=== PATIENT | male | born 1990 | race Caucasian/White ===

== ENCOUNTER 2017-10-30 06:30 | Observation (INO) | payer MEDICAID, OTHER ==
[~2017-10-30] VITALS: Ht 167.6 cm; Wt 60.0 kg
[2017-10-30] MEDS ORDERED: ZIPRASIDONE 40MG CAPSULE PO STA (06:34)
[2017-10-30 07:11] LABS: BASOPHILS # (AUTO) 0.03 x10^3/uL (0-0.1); BASOPHILS % (AUTO) 0 % (0-1); EOSINOPHILS # (AUTO) 0.24 x10^3/uL (0-0.4); EOSINOPHILS % (AUTO) 3 % (1-7); LYMPHOCYTES # (AUTO) 2.21 x10^3/uL (1-3.4); LYMPHOCYTES % (AUTO) 24 % (22-44); MD NO; MEAN CORPUSCULAR HEMOGLOBIN 28.1 pg (27.5-34.5); MEAN CORPUSCULAR HGB CONC 33.3 g/dL (33.2-36.2); MEAN CORPUSCULAR VOLUME 84.4 fL (81-97); MEAN PLATELET VOLUME 7.9 fL (7.4-10.4); MONOCYTES # (AUTO) 0.62 x10^3/uL (0.2-0.8); MONOCYTES % (AUTO) 7 % (2-9); NEUTROPHILS % (AUTO) 67 % (42-75); PLATELET COUNT 360 x10^3/uL (130-400); RED BLOOD COUNT 5.41 x10^6/uL (4.38-5.82); RED CELL DISTRIBUTION WIDTH 14.4 % (9.4-14.8)
[2017-10-30 07:26] LABS: ALBUMIN 3.8 g/dL (3.4-5.0); ANION GAP 8 mmol/L (5-15); CALCIUM 8.7 mg/dL (8.5-10.1); CHLORIDE 106 mmol/L (98-107)
[2017-10-30 07:29] LABS: ALANINE AMINOTRANSFERASE 47 U/L (12-78); ALKALINE PHOSPHATASE 105 U/L (45-117); BILIRUBIN,TOTAL 0.6 mg/dL (0.2-1.0); CREATININE 0.88 mg/dL (0.7-1.3); TOTAL PROTEIN 7.8 g/dL (6.4-8.2)
[2017-10-30 07:30] LABS: ACETAMINOPHEN < 2 mcg/mL (10-30); SALICYLATE LEVEL < 1.7 mg/dL (2.8-20.0)
[2017-10-30 07:37] LABS: AMPHETAMINE SCREEN, URINE Negative (Negative); BARBITURATE SCREEN, URINE Negative (Negative); BENZODIAZEPINE SCREEN, URINE Negative (Negative); CANNABINOID SCREEN, URINE Negative (Negative); COCAINE SCREEN, URINE Negative (Negative); METHADONE SCREEN, URINE Negative (Negative); OPIATE SCREEN, URINE Negative (Negative)
[2017-10-30] MEDS ORDERED: ACETAMINOPHEN 325 MG TABLET PO PRN (12:00)
[2017-10-30] MEDS ORDERED: ONDANSETRON ODT 4 MG PO PRN (12:00)
[2017-10-30] MEDS ORDERED: DOCUSATE 100 MG CAPSULE PO PRN (12:00)
[2017-10-30 12:31] LABS: FREE T4 (FREE THYROXINE) 1.11 ng/dL (0.76-1.46); THYROID STIMULATING HORMONE 2.62 mIU/L (0.358-3.740)
[2017-10-30 14:35] LABS: CULTURE INDICATED? NO; MICROSCOPIC NOT IND
[2017-10-30] MEDS ORDERED: QUETIAPINE 25MG TABLET ONE (21:59)
[2017-10-30] MEDS: QUETIAPINE 25MG TABLET PO SCH (22:02)
[2017-10-31] MEDS ORDERED: LORazepam 1MG TABLET PO ONE (02:00)
[2017-10-31] MEDS ORDERED: LORazepam 1MG TABLET ONE (17:21)
[2017-10-31] MEDS ORDERED: QUETIAPINE 100MG TABLET ONE (20:24)
[2017-10-31] MEDS ORDERED: QUETIAPINE 25MG TABLET ONE (20:36)
[2017-10-31] MEDS: QUETIAPINE 25MG TABLET PO SCH (20:48)
[2017-11-01] MEDS ORDERED: LORazepam 1MG TABLET ONE (00:48)
[2017-11-01] MEDS ORDERED: LORazepam 1MG TABLET PO ONE (01:00)
[2017-11-01] MEDS ORDERED: ZIPRASIDONE 20MG CAPSULE ONE (01:57)
[2017-11-01] MEDS ORDERED: ZIPRASIDONE 20MG CAPSULE PO ONE (02:00)
[2017-11-01] MEDS: QUETIAPINE 25MG TABLET PO SCH (21:00)
[2017-11-01] MEDS ORDERED: QUETIAPINE 25MG TABLET ONE (21:10)
[2017-11-02] MEDS ORDERED: LORazepam 1MG TABLET ONE ×3 (05:42→23:05)
[2017-11-02] MEDS: LORazepam 1MG TABLET PO PRN ×3 (05:44→23:10)
[2017-11-02] MEDS ORDERED: QUETIAPINE 25MG TABLET ONE (21:00)
[2017-11-02] MEDS: QUETIAPINE 25MG TABLET PO SCH (21:03)
[2017-11-03] MEDS ORDERED: LORazepam 1MG TABLET ONE (03:35)
[2017-11-03] MEDS: LORazepam 1MG TABLET PO PRN (03:35)
[2017-11-03] MEDS ORDERED: QUETIAPINE 25MG TABLET ONE (20:23)
[2017-11-03] MEDS: QUETIAPINE 25MG TABLET PO SCH (20:28)
[2017-11-04] MEDS ORDERED: LORazepam 1MG TABLET ONE (07:41)
[2017-11-04] MEDS: LORazepam 1MG TABLET PO PRN ×2 (07:42→21:27)
[2017-11-04 19:48] VITALS: BP 113/71
[2017-11-04] MEDS: QUETIAPINE 25MG TABLET PO SCH (21:27)
[2017-11-05 07:54] VITALS: BP 109/80
[2017-11-05 19:17] VITALS: BP 93/53
[2017-11-05 20:00] VITALS: BP 115/69
[2017-11-05] MEDS: QUETIAPINE 25MG TABLET PO SCH (21:10)
[2017-11-05] MEDS: LORazepam 1MG TABLET PO PRN (21:19)
[2017-11-06 04:40] VITALS: BP 115/87
[2017-11-06] MEDS: LORazepam 1MG TABLET PO PRN (04:44)
[2017-11-06 07:30] VITALS: BP 97/59
[2017-11-06 20:00] VITALS: BP 97/41
[2017-11-06 21:32] VITALS: BP 103/54
[2017-11-06] MEDS: QUETIAPINE 100MG TABLET PO SCH (21:37)
[2017-11-07 07:30] VITALS: BP 105/75
[2017-11-07 20:17] VITALS: BP 123/72
[2017-11-07] MEDS: QUETIAPINE 100MG TABLET PO SCH (21:36)
[2017-11-08 07:37] VITALS: BP 111/71
[2017-11-08 19:49] VITALS: BP 102/74
[2017-11-08] MEDS: QUETIAPINE 100MG TABLET PO SCH (20:51)
[2017-11-08] MEDS: LORazepam 1MG TABLET PO PRN (20:53)
[2017-11-08] MEDS ORDERED: DIPHENHYDRAMINE 50 MG CAPSULE PO ONE (23:30)
[2017-11-09] MEDS ORDERED: ZIPRASIDONE 20 MG INJ IM PRN (19:30)
[2017-11-09 19:51] VITALS: BP 120/73
[2017-11-09] MEDS: LORazepam 1MG TABLET PO PRN (20:15)
[2017-11-09] MEDS: QUETIAPINE 100MG TABLET PO SCH (20:15)
[2017-11-10 03:37] VITALS: BP 126/79
[2017-11-10 08:57] VITALS: BP 110/64
[2017-11-10] MEDS: LORazepam 1MG TABLET PO PRN (09:46)
[2017-11-10] MEDS ORDERED: DIPHENHYDRAMINE 25 MG CAPSULE PO ONE (13:30)
[2017-11-10] MEDS ORDERED: OLANZAPINE 10 MG INJ IM PRN (14:00)
[2017-11-10] MEDS ORDERED: BENZTROPINE 1 MG/ML, 2 ML IM PRN (14:00)
[2017-11-10] MEDS: BENZTROPINE 1 MG TABLET PO PRN (17:17)
[2017-11-10 19:42] VITALS: BP 118/66
[2017-11-10] MEDS ORDERED: QUETIAPINE 100MG TABLET PO SCH (21:00)
[2017-11-10] MEDS ORDERED: DIPHENHYDRAMINE 50 MG CAPSULE PO PRN (22:00)
[2017-11-11 07:40] VITALS: BP 128/84
[2017-11-11] MEDS: QUETIAPINE 25MG TABLET PO PRN (08:52)
[2017-11-11] MEDS: BENZTROPINE 1 MG TABLET PO PRN (08:53)
[2017-11-11] MEDS: LORazepam 1MG TABLET PO PRN (08:53)
[2017-11-11] MEDS ORDERED: QUETIAPINE 100MG TABLET PO SCH (21:00)
[2017-11-12] MEDS: ORAJEL 7GM TUBE MM PRN ×3 (02:40→15:27)
[2017-11-12 07:20] VITALS: BP 113/79
[2017-11-12] MEDS: QUETIAPINE 25MG TABLET PO PRN (08:16)
[2017-11-12] MEDS: BENZTROPINE 1 MG TABLET PO PRN (08:17)
[2017-11-12] MEDS: LORazepam 1MG TABLET PO PRN (08:17)
[2017-11-12] MEDS ORDERED: OLAN10VI2 IM (12:47)
[2017-11-12] MEDS ORDERED: BENZ1TAB61 PO (12:47)
[2017-11-12] MEDS ORDERED: QUET100T PO (12:47)
[2017-11-12] MEDS ORDERED: CLON-365 PO (12:47)
[2017-11-12] MEDS ORDERED: QUET25TA PO (12:47)
== END 2017-11-12 17:13 ==
LOC: ED 08:03 → EDIP 10:38 → 2N 11-04 14:54
PROVIDERS: ADMIT Hospitalist; ATTEND Hospitalist
DX: R45.851 Suicidal ideations (principal); F20.0 Paranoid schizophrenia; F31.9 Bipolar disorder, unspecified; F41.1 Generalized anxiety disorder; G47.00 Insomnia, unspecified; Z91.14 Patient's other noncompliance with medication regimen
CPT/HCPCS: 36415; 80053; 80307; 80329; 81003; 84439; 84443; 85025; 96372; 99285; G0378; J3486; Q0163; G0480

== ENCOUNTER 2019-02-25 22:03 | Emergency (ER) | payer MEDICAID, OTHER ==
[~2019-02-25] VITALS: Ht 172.7 cm; Wt 62.0 kg
[~2019-02-25 22:03] MED LIST: BENZ1TAB61 PO; CLON1TAB11 PO; OLAN10VI2 IM; QUET100T PO; QUET25TA7 PO
[2019-02-25 22:11] VITALS: BP 103/71
--- NOTE | 2019-02-25 22:18 | NUR ---
Pt ambulated to room with biomedical engineering technician.
--- NOTE | 2019-02-25 22:38 | NUR ---
Urine sample collected and sent to lab with general labor, bloodwork collected.
[2019-02-25 22:45] LABS: BASOPHILS # (AUTO) 0.04 x10^3/uL (0-0.1); BASOPHILS % (AUTO) 1 % (0-1); EOSINOPHILS # (AUTO) 0.23 x10^3/uL (0-0.4); EOSINOPHILS % (AUTO) 3 % (1-7); LYMPHOCYTES % (AUTO) 22 % (22-44); MD NO; MEAN CORPUSCULAR HEMOGLOBIN 28.9 pg (27.5-34.5); MEAN CORPUSCULAR HGB CONC 32.4 g/dL (33.2-36.2); MEAN CORPUSCULAR VOLUME 89.2 fL (81-97); MEAN PLATELET VOLUME 7.9 fL (7.4-10.4); MONOCYTES # (AUTO) 0.69 x10^3/uL (0.2-0.8); MONOCYTES % (AUTO) 9 % (2-9); NEUTROPHILS # (AUTO) 5.07 x10^3/uL (1.8-6.8); NEUTROPHILS % (AUTO) 66 % (42-75); PLATELET COUNT 316 x10^3/uL (130-400); RED BLOOD COUNT 5.25 x10^6/uL (4.38-5.82); RED CELL DISTRIBUTION WIDTH 13.6 % (9.4-14.8)
--- NOTE | 2019-02-25 22:45 | NUR ---
Pt pacing around the room, talking to himself. Upon RN entering the room, pt answers most questions but refuses to answer some. Pt states that he came to ED for "depression and anxiety" pt states that he has visual and auditory hallucinations and c/o "it seems like I'm retarded." Pt states that he is suicidal with a plan to shoot himself, pt denies access to a gun. Pt states that he has had a previous "suicide attempt" in which he "was going to stab [myself] but someone stopped [me]." Pt denies any injury at that time. Pt states that he is prescribed seroquel but pt refusing to answer if he is currently taking that prescribed medication.
[2019-02-25 22:57] LABS: ALBUMIN 4.1 g/dL (3.4-5.0); ANION GAP 6 mmol/L (5-15); CHLORIDE 105 mmol/L (98-107)
--- NOTE | 2019-02-25 22:57 | NUR ---
Pt requesting food, stating "I haven't felt good so I haven't eaten in a few days and I need food." Pt advised that he has to wait until he has been evaluated by the ERP and the ERP has to give permission. Pt states "Fuck you then, I want a different nurse that can understand me. I need food." Pt states "I have a place to stay, I have an income, I have more money than you, than fucking all of you at this hospital and I want a different nurse who will give me food."
[2019-02-25 22:58] LABS: SALICYLATE LEVEL < 1.7 mg/dL (2.8-20.0)
[2019-02-25 22:59] LABS: AMPHETAMINE SCREEN, URINE Negative (Negative); BARBITURATE SCREEN, URINE Negative (Negative); BENZODIAZEPINE SCREEN, URINE Negative (Negative); CANNABINOID SCREEN, URINE Negative (Negative); COCAINE SCREEN, URINE Negative (Negative); METHADONE SCREEN, URINE Negative (Negative); OPIATE SCREEN, URINE Negative (Negative)
--- NOTE | 2019-02-25 23:10 | NUR ---
Dr. Mena at bedside, pt denies suicial ideations. Pt to be discharged.
--- NOTE | 2019-02-25 23:13 | NUR ---
Patient discharged home.
== END 2019-02-26 00:36 | disposition home or self-care (01) ==
LOC: ED 02-26 00:30
DX: F33.9 Major depressive disorder, recurrent, unspecified (principal); Z72.9 Problem related to lifestyle, unspecified
CPT/HCPCS: 36415; 80048; 80307; 82040; 85025; 99284

== ENCOUNTER 2019-04-15 03:26 | Emergency (ER) | payer MEDICAID ==
[~2019-04-15] VITALS: Ht 172.7 cm; Wt 66.0 kg
[2019-04-15 05:16] VITALS: BP 140/82
== END 2019-04-15 05:18 | disposition home or self-care (01) ==
LOC: ED 03:41
DX: F15.129 Other stimulant abuse with intoxication, unspecified (principal); Z72.9 Problem related to lifestyle, unspecified; F31.9 Bipolar disorder, unspecified; F41.1 Generalized anxiety disorder
CPT/HCPCS: 99283

== ENCOUNTER 2019-04-17 01:54 | Emergency (ER) | payer MEDICAID ==
[~2019-04-17] VITALS: Ht 172.7 cm; Wt 65.0 kg
[2019-04-17 02:05] VITALS: BP 130/81
== END 2019-04-17 03:13 | disposition home or self-care (01) ==
LOC: ED 02:22
DX: R11.2 Nausea with vomiting, unspecified (principal); Z72.9 Problem related to lifestyle, unspecified; F31.9 Bipolar disorder, unspecified; F41.1 Generalized anxiety disorder
CPT/HCPCS: 99283; Q0162

== ENCOUNTER 2019-09-15 21:46 | Emergency (ER) | payer MEDICAID ==
[~2019-09-15] VITALS: Ht 172.7 cm; Wt 70.6 kg
[~2019-09-15 21:46] MED LIST changes: +ARIP10TA33 PO; +HYDR50CA2 PO; +SERT50TA28 PO
[2019-09-15 21:51] VITALS: BP 139/89
--- NOTE | 2019-09-15 22:15 | NUR ---
pt refused, pt afraid of xray
[2019-09-15 22:21] LABS: BASOPHILS # (AUTO) 0.02 x10^3/uL (0-0.1); BASOPHILS % (AUTO) 0 % (0-1); EOSINOPHILS # (AUTO) 0.01 x10^3/uL (0-0.4); EOSINOPHILS % (AUTO) 0 % (1-7); LYMPHOCYTES # (AUTO) 1.37 x10^3/uL (1-3.4); LYMPHOCYTES % (AUTO) 15 % (22-44); MD NO; MEAN CORPUSCULAR HEMOGLOBIN 29.9 pg (27.5-34.5); MEAN CORPUSCULAR HGB CONC 33.1 g/dL (33.2-36.2); MEAN CORPUSCULAR VOLUME 90.4 fL (81-97); MONOCYTES # (AUTO) 0.13 x10^3/uL (0.2-0.8); MONOCYTES % (AUTO) 1 % (2-9); NEUTROPHILS # (AUTO) 7.85 x10^3/uL (1.8-6.8); NEUTROPHILS % (AUTO) 84 % (42-75); PLATELET COUNT 370 x10^3/uL (130-400); RED BLOOD COUNT 5.14 x10^6/uL (4.38-5.82); RED CELL DISTRIBUTION WIDTH 13.4 % (9.4-14.8)
[2019-09-15 22:29] LABS: ALANINE AMINOTRANSFERASE 40 U/L (12-78); ALBUMIN 4.4 g/dL (3.4-5.0); ANION GAP 6 mmol/L (5-15); CALCIUM 9.4 mg/dL (8.5-10.1); CHLORIDE 105 mmol/L (98-107); CREATININE 1.01 mg/dL (0.7-1.3)
[2019-09-15] MEDS ORDERED: ONDANSETRON ODT 4 MG PO ONE (22:30)
--- NOTE | 2019-09-15 22:30 | NUR ---
THIS IS A 29 YO MALE COMING IN FOR "I'M NAUSEOUS, I HAVE SOME HEART STRAINS, AND VERONIQUE SHORT OF BREATH, AND IT FEELS LIKE MY BRAIN IS SWOLLEN FOR THE LAST FEW HOURS", DENIES COUGH. PATIENT STATES THE "STRAINS IN MY CHEST" ARE INTERMITTENT, STATES "I HAD A HEART ATTACK AT 27 OR 28". PATIENT IS POOR HISTORIAN. PATIENT STATES HE OCCASIONALLY USES METH, DENIES ETOH, SMOKE 3-4 CIGARETTES PER DAY. PATIENT PLACED ON PERSONAL INJURY ATTORNEY, SINUS TACHYCARDIA PRESENT AT 109. CONTINUOUS SPO2 AT 96%, CYCLE BP Q1HR. CALL LIGHT IN REACH, DENIES NEEDS AT THIS TIME.
[2019-09-15 22:33] LABS: ALKALINE PHOSPHATASE 77 U/L (45-117); BILIRUBIN,TOTAL 0.3 mg/dL (0.2-1.0); TOTAL PROTEIN 8.5 g/dL (6.4-8.2); TROPONIN I < 0.015 ng/mL (0.000-0.045)
[2019-09-15] MEDS ORDERED: ONDANSETRON ODT 4 MG ONE (22:52)
[2019-09-15] MEDS ORDERED: IBUPROFEN 800 MG TABLET ONE (22:52)
[2019-09-15] MEDS ORDERED: IBUPROFEN 800 MG TABLET PO ONE (23:00)
--- NOTE | 2019-09-15 23:00 | NUR ---
PATIENT MEDICATED PER EMAR, TOLERATED WELL. DENIES NEEDS AT THIS TIME. GIVEN PO FLUIDS.
--- NOTE | 2019-09-15 23:32 | NUR ---
DC EDUCATION PROVIDED, PT DEMONSTRATES UNDERSTANDING. PT AMBULATED STEADILY TO DC WITH RN
== END 2019-09-15 23:33 | disposition home or self-care (01) ==
LOC: ED 22:27
DX: R07.89 Other chest pain (principal); F15.129 Other stimulant abuse with intoxication, unspecified; R11.0 Nausea; R51 Headache; R19.7 Diarrhea, unspecified; F17.200 Nicotine dependence, unspecified, uncomplicated
CPT/HCPCS: 36415; 80053; 84484; 85025; 93005; 99284; Q0162

== ENCOUNTER 2019-09-20 13:35 | Emergency (ER) | payer MEDICAID ==
[~2019-09-20] VITALS: Ht 172.7 cm; Wt 67.7 kg
[2019-09-20 13:56] VITALS: BP 108/68
[2019-09-20 14:29] LABS: BASOPHILS # (AUTO) 0.02 x10^3/uL (0-0.1); BASOPHILS % (AUTO) 0 % (0-1); EOSINOPHILS # (AUTO) 0.13 x10^3/uL (0-0.4); EOSINOPHILS % (AUTO) 3 % (1-7); LYMPHOCYTES # (AUTO) 1.26 x10^3/uL (1-3.4); LYMPHOCYTES % (AUTO) 24 % (22-44); MD NO; MEAN CORPUSCULAR HEMOGLOBIN 29.5 pg (27.5-34.5); MEAN CORPUSCULAR HGB CONC 33.3 g/dL (33.2-36.2); MEAN CORPUSCULAR VOLUME 88.5 fL (81-97); MEAN PLATELET VOLUME 8.2 fL (7.4-10.4); MONOCYTES # (AUTO) 0.52 x10^3/uL (0.2-0.8); MONOCYTES % (AUTO) 10 % (2-9); NEUTROPHILS # (AUTO) 3.34 x10^3/uL (1.8-6.8); NEUTROPHILS % (AUTO) 63 % (42-75); PLATELET COUNT 308 x10^3/uL (130-400); RED BLOOD COUNT 4.58 x10^6/uL (4.38-5.82); RED CELL DISTRIBUTION WIDTH 13.4 % (9.4-14.8)
[2019-09-20 14:35] LABS: ALANINE AMINOTRANSFERASE 29 U/L (12-78); ALBUMIN 3.9 g/dL (3.4-5.0); ANION GAP 2 mmol/L (5-15); CALCIUM 8.9 mg/dL (8.5-10.1); CHLORIDE 108 mmol/L (98-107); CREATININE 0.95 mg/dL (0.7-1.3)
[2019-09-20 14:37] LABS: ALKALINE PHOSPHATASE 73 U/L (45-117); BILIRUBIN,TOTAL 0.6 mg/dL (0.2-1.0); TOTAL PROTEIN 7.6 g/dL (6.4-8.2)
--- NOTE | 2019-09-20 14:58 | NUR ---
N/V NOT FEELING WELL FOR 2 DAYS
== END 2019-09-20 15:25 | disposition home or self-care (01) ==
LOC: ED 15:00
DX: F33.9 Major depressive disorder, recurrent, unspecified (principal); K52.9 Noninfective gastroenteritis and colitis, unspecified; Z72.9 Problem related to lifestyle, unspecified
CPT/HCPCS: 36415; 80053; 83690; 85025; 99283

== ENCOUNTER 2019-09-25 06:05 | Emergency (ER) | payer MEDICAID ==
[~2019-09-25] VITALS: Ht 172.7 cm; Wt 63.0 kg
--- NOTE | 2019-09-25 06:19 | NUR ---
Patient BIB ольга. Patient was picked up in front of the half-way. He states he has has suicidal intentions. Tonight he has been punching himself to cause harm and eventually cause suicide. He states he has had these thoughts before. He had thoughts about shooting himself recently but he does not own a gun. Patient has a hx of schizophrenia and has not been compliant with meds. Patient also states he's feeling homicidal.
--- NOTE | 2019-09-25 06:23 | NUR ---
Patient belongings collected and placed in locked cabinet. Room secured. Sitter outside.
[2019-09-25 06:41] LABS: BASOPHILS # (AUTO) 0.04 x10^3/uL (0-0.1); BASOPHILS % (AUTO) 0 % (0-1); EOSINOPHILS # (AUTO) 0.12 x10^3/uL (0-0.4); EOSINOPHILS % (AUTO) 1 % (1-7); LYMPHOCYTES # (AUTO) 1.25 x10^3/uL (1-3.4); LYMPHOCYTES % (AUTO) 12 % (22-44); MD NO; MEAN CORPUSCULAR HEMOGLOBIN 29.3 pg (27.5-34.5); MEAN CORPUSCULAR HGB CONC 33.1 g/dL (33.2-36.2); MEAN CORPUSCULAR VOLUME 88.5 fL (81-97); MEAN PLATELET VOLUME 7.7 fL (7.4-10.4); MONOCYTES # (AUTO) 0.79 x10^3/uL (0.2-0.8); MONOCYTES % (AUTO) 8 % (2-9); NEUTROPHILS # (AUTO) 8.23 x10^3/uL (1.8-6.8); NEUTROPHILS % (AUTO) 79 % (42-75); PLATELET COUNT 289 x10^3/uL (130-400); RED BLOOD COUNT 4.94 x10^6/uL (4.38-5.82); RED CELL DISTRIBUTION WIDTH 12.9 % (9.4-14.8)
[2019-09-25 06:53] LABS: ALANINE AMINOTRANSFERASE 28 U/L (12-78); ALBUMIN 3.8 g/dL (3.4-5.0); ANION GAP 6 mmol/L (5-15); CHLORIDE 106 mmol/L (98-107); CREATININE 0.93 mg/dL (0.7-1.3)
[2019-09-25 06:54] LABS: SALICYLATE LEVEL < 1.7 mg/dL (2.8-20.0)
[2019-09-25 06:55] LABS: ALKALINE PHOSPHATASE 64 U/L (45-117); BILIRUBIN,TOTAL 0.5 mg/dL (0.2-1.0); TOTAL PROTEIN 7.4 g/dL (6.4-8.2)
[2019-09-25 07:09] LABS: AMPHETAMINE SCREEN, URINE Negative (Negative); BARBITURATE SCREEN, URINE Negative (Negative); BENZODIAZEPINE SCREEN, URINE Negative (Negative); CANNABINOID SCREEN, URINE Negative (Negative); COCAINE SCREEN, URINE Negative (Negative); METHADONE SCREEN, URINE Negative (Negative); OPIATE SCREEN, URINE Negative (Negative)
--- NOTE | 2019-09-25 07:09 | NUR ---
LATE ENTRY FOR 0650 RECEIVED BEDSIDE REPORT FROM TAD DO. PT RESTING ON [facility]. [facility]. ALL SAFETY MEASURES OBTAINED. SITTER AT DOORWAY.
--- NOTE | 2019-09-25 09:24 | NUR ---
LATE ENTRY FOR 0810 PT CONTINUES TO SLEEP ON GURNEY. HIGHTOWER. RESPS EQUAL AND UNLABORED. ALL SAFETY MEASURES OBTAINED. SITTER AT DOORWQ= Addendum: 09/25/19 at 0926 by [email or web address] [facility]
--- NOTE | 2019-09-25 09:49 | NUR ---
LATE ENTRY FOR 0900 PT CONTINUES TO SLEEP ON GURNEY. NADN. RESPS EQUAL UNLABORED. ALL SAFETY MEASURES OBTAINED.
--- NOTE | 2019-09-25 09:53 | NUR ---
PT SLEEPING ON [place]. [place]. ALL SAFETY MEASURES OBTAINED. SITTER AT DOORWAY. PT WITHIN FULL VIEW,.
--- NOTE | 2019-09-25 11:36 | NUR ---
PT CONTINUES TO SLEEP ON [facility]. ALL SAFETY MEASURES OBTAINED. PT ON LEGAL HOLD. NADN. RESPS EQUAL AND UNLABORED. WILL CONTINUE TO MONITOR.
--- NOTE | 2019-09-25 12:23 | NUR ---
DIET TRAY DELIVERED TO PT. PT MYA AT THIS TIME. NADN. ALL SAFETY MEASURES OBTAINED.
--- NOTE | 2019-09-25 12:30 | NUR ---
PT A&OX4. NADN. VSS.
--- NOTE | 2019-09-25 13:11 | NUR ---
PT CONTINUES TO SLEEP ON GURNEY. NADN. RESPS EQUAL AND UNLABORED. ALL SAFETY MEASURES OBTAINED. SITTER AT DOORWAY, PT WITHIN FULL VIEW.
--- NOTE | 2019-09-25 13:30 | NUR ---
PACKET FAXED TO [facility] AND [facility]
--- NOTE | 2019-09-25 14:27 | NUR ---
PSYCH TREVON SPOKE WITH PT. PT LEGAL HOLD CONTINUED.
[2019-09-25] MEDS ORDERED: ARIPIPRAZOLE 10 MG TABLET ONE (15:17)
[2019-09-25] MEDS: ARIPIPRAZOLE 10 MG TABLET PO SCH (15:20)
--- NOTE | 2019-09-25 15:20 | NUR ---
PT WAKES UP TO VERBAL STIMULI. PT TAKES MEDICATION THAT TRACK LEADER ORDERED. NADN. NO OTHER REQUESTS AT THIS TIME.
--- NOTE | 2019-09-25 15:22 | NUR ---
ALL SAFETY MEASURES OBTAINED.
--- NOTE | 2019-09-25 16:29 | NUR ---
PT SLEEPING ON GURNEY. NADN. RESPS EQUAL AND UNLABORED. ALL SAFETY MEASURES OBTAINED. SITTER AT DOORWAY, PT WITHIN FULL VIEW.
--- NOTE | 2019-09-25 17:27 | NUR ---
PT RESTING ON GURNEY. NADN. RESPS EQUAL AND UNLABORED. PT STATES TO SITTER HE DOESN'T HAVE TO USE THE BATHROOM YET. ALL SAFETY MEASURES OBTAINED.
--- NOTE | 2019-09-25 18:29 | NUR ---
PT CONTINUES TO SLEEP ON GURNEY. NADN. RESPS EQUAL AND UNLBORED. ALL SAFETY MEASURES OBTAINED.
--- NOTE | 2019-09-25 18:52 | NUR ---
BEDSIDE REPORT TO TAD HARRIS
[2019-09-25] MEDS ORDERED: LORazepam 1MG TABLET PO ONE (22:00)
[2019-09-25] MEDS ORDERED: DIPHENHYDRAMINE 25 MG CAPSULE PO ONE (22:00)
[2019-09-25] MEDS ORDERED: DIPHENHYDRAMINE 25 MG CAPSULE ONE (22:16)
--- NOTE | 2019-09-25 22:17 | NUR ---
TP RN: CALLED [facility] TO FOLLOW UP ON ACCEPTANCE. I SPOKE WITH JOANNA, WHO STATED THEY ARE WAITING FOR A COMMERCIAL CREDIT SPECIALIST TO REVIEW. THIS WILL TAKE PLACE TOMORROW MORNING WHEN A COMMERCIAL CREDIT SPECIALIST IS IN
--- NOTE | 2019-09-25 22:19 | NUR ---
PT STATES HE HAS AN ALLERGY TO ATIVAN
--- NOTE | 2019-09-25 22:20 | NUR ---
PT UPDATED ON POC
--- NOTE | 2019-09-25 22:21 | NUR ---
PT PROVIDED HOSPITAL BED. SITTER AT DOORWAY FOR FREQUENT CHECKS.
--- NOTE | 2019-09-25 23:25 | NUR ---
PT RESTING ON HOSPITAL BED. WATCHING TV. SITTER AT DOORWAY FOR FREQUENT CHECKS.
--- NOTE | 2019-09-26 02:05 | NUR ---
PT RESTING ON HOSPITAL BED. RESPIRATIONS EVEN AND UNLABORED. SITTER AT DOORWAY FOR FREQUENT CHECKS.
--- NOTE | 2019-09-26 04:09 | NUR ---
PT RESTING ON HOSPITAL BED WITH EYES CLOSED. RESPIRATIONS EVEN AND UNLABORED. SITTER AT DOORWAY FOR FREQUENT CHECKS.
--- NOTE | 2019-09-26 07:08 | NUR ---
REPORT RECEIVED FROM KIMBERLY MISHRA.
[2019-09-26] MEDS ORDERED: ARIPIPRAZOLE 10 MG TABLET ONE (08:06)
[2019-09-26] MEDS: ARIPIPRAZOLE 10 MG TABLET PO SCH (08:09)
--- NOTE | 2019-09-26 08:10 | NUR ---
PATIENT MEDICATED PER EMAR. VS UPDATED. DIET TRAY DELIVERED. PATIENT DENIES FURTHER NEEDS AT THIS TIME.
--- NOTE | 2019-09-26 08:28 | NUR ---
REFUSED SUICIDE REASSESSMEN, STATES "I DON'T FEEL GOOD RIGHT NOW". ASKED ME TO COME BACK LATER.
--- NOTE | 2019-09-26 10:53 | NUR ---
PATIENT SLEEPING ON GURNEY. CHEST RISE AND FALL NOTED.
--- NOTE | 2019-09-26 11:53 | NUR ---
PATIENT SLEEPING ON GURNEY. CHEST RISE AND FALL NOTED.
--- NOTE | 2019-09-26 12:31 | NUR ---
DIET TRAY DELIVERED.
--- NOTE | 2019-09-26 19:02 | NUR ---
REPORT RECEIVED FROM SILVIA RN. PT RESTING ON HOSPITAL BED WITH EYES CLOSED. ROOM SECURED, ALL SAFETY MEASURES IN PLACE, SITTER IN HALLWAY WITHIN LINE OF SIGHT.
--- NOTE | 2019-09-26 19:49 | NUR ---
PT RESTING ON HOSPITAL BED WITH EYES CLOSED. RESPIRATIONS EVEN AND NONLABORED.
--- NOTE | 2019-09-26 19:51 | NUR ---
MEAL TRAY RECEIVED AT 1800 PER TAD MONTGOMERY. PT PROVIDED CRACKERS AND JUICE UPON REQUEST.
[2019-09-26] MEDS ORDERED: DIPHENHYDRAMINE 50 MG CAPSULE PO STA (22:49)
[2019-09-26] MEDS ORDERED: IBUPROFEN 600 MG TABLET ONE (22:50)
[2019-09-26] MEDS ORDERED: DIPHENHYDRAMINE 50 MG CAPSULE ONE (22:50)
--- NOTE | 2019-09-26 22:55 | NUR ---
PT REQUESTED IBUPROPHEN FOR CALERO. NOTIFIED. PT MEDICATED PER NOV. ALL NEEDS MET AT THIS TIME.
[2019-09-26] MEDS ORDERED: IBUPROFEN 200 MG TABLET PO ONE (23:00)
--- NOTE | 2019-09-27 00:16 | NUR ---
PT PACING ROOM. GIVEN BENADRYL TO HELP SLEEP PER MAR. PT REPORTS HE WANTS TO GO TO [facility] SOON POSSIBLE. PT UPDATED ON POC.
--- NOTE | 2019-09-27 00:59 | NUR ---
ASSUMED CARE OF PT, PT BANGMARIEG ON WALL ASKING FOR WATER PT CALLING THIS NURSE "BITCH " SECURITY CALLED TO SPEAK WITH PT AND PT STATED THAT HE WOULD GO TO BED, WATER GIVEN TO PT
--- NOTE | 2019-09-27 01:04 | NUR ---
ROOM SECURED. SITTER IN HALLWAY IN LINE OF SIGHT.
--- NOTE | 2019-09-27 02:37 | NUR ---
PT IN BED WATCHING CARTOONS LAUGHING IN NAD
--- NOTE | 2019-09-27 05:33 | NUR ---
pt sleepig in nad at this time
--- NOTE | 2019-09-27 08:15 | NUR ---
In patient's room, VS obtained. Patient has face covered with hair and blanket, cooperative with vital signs. Requesting double portions for breakfast. Irritable with assessent questions, reports he is depressed, can't quantify how severe. Denies pain, States he feels homicial, then tells nurse to go away and leave him alone, covers head. Refuses further assessent. Sitter at bedside, one to one with patient. Suicide precautions, garage door down, other items removed from room. Continuous observation.
--- NOTE | 2019-09-27 08:15 | NUR ---
Assumed care. Patient asleep in room, 1:1 with tech, suicide precautions. All unsafe items removed from room, garage door down.
--- NOTE | 2019-09-27 10:09 | NUR ---
Patient wakened for VS, guarded and irritable. States he is hungry. Reported feeling homicidal but did not answer any further questions. States he wants double portions for breakfast, otherwise, "Go away and leave me alone". Seemed appreciative with breakfast arrived, ate with good appetite. Suicide precautions , unnecessary items removed from room, garage door down, 1:1 with tech. Continue to monitor.
--- NOTE | 2019-09-27 11:11 | NUR ---
Patient continues to sleep, even and regular rise and fall of chest Tech at doorway, monitoring patient
--- NOTE | 2019-09-27 11:59 | NUR ---
Patient continues to sleep, even rise and fall of chest. Sitter at bedside.
--- NOTE | 2019-09-27 12:56 | NUR ---
Patient awake briefly and ate his lunch. Then went back to sleep.
--- NOTE | 2019-09-27 13:06 | NUR ---
Received report from TAD Barnes. All questions answered. Assuming care of pt at this time. Pt resting with eyes closed laying on stomach on hospital bed. Pt has unlabored respirations with even chest rise and fall. Room remains secured for SI and HI. Per Molly, pt claims HI. Pt has snacks near bedside. No needs expressed at this time. Sitter near doorway in direct line of sight for observation.
[2019-09-27] MEDS ORDERED: ARIPIPRAZOLE 10 MG TABLET ONE (13:08)
[2019-09-27] MEDS: ARIPIPRAZOLE 10 MG TABLET PO SCH (13:12)
--- NOTE | 2019-09-27 14:46 | NUR ---
Pt pacing in room requesting coffee. Pt provided decaf coffee. Pt apprecative. No other needs expressed. Pt sitting on hospital bed. No other needs expressed. Sitter near doorway in direct line of sight for observation.
--- NOTE | 2019-09-27 15:17 | NUR ---
Pt resting supine on hospital bed watching TV. Pt has snacks and water provided near bedside. Pt has unlabored respirations with even chest rise and fall. Sitter near doorway in direct line of sight for observation. No needs expressed at this time.
--- NOTE | 2019-09-27 15:53 | NUR ---
Pt requesting two SI diet trays. Ordered pt trays STAT.
--- NOTE | 2019-09-27 16:27 | NUR ---
Pt requesting to shower. field map technician to take pt to shower.
--- NOTE | 2019-09-27 16:49 | NUR ---
Two extra meal trays provided to pt. Pt taken to shower by technical lead.
--- NOTE | 2019-09-27 16:55 | NUR ---
Pt back to room from shower. Sitter near doorway in direct line of sight for observation.
--- NOTE | 2019-09-27 18:32 | NUR ---
Pt resting on hospital bed watching TV. No needs expressed. Sitter in direct line of sight for observation.
--- NOTE | 2019-09-27 18:57 | NUR ---
Provided bedside report to TAD Duncan. All questions answered. Pt resting on hospital bed watching TV. No needs requested. TAD Duncan to assume care of pt at this time.
--- NOTE | 2019-09-27 19:41 | NUR ---
pt sleeping. nad. sitter in place.
--- NOTE | 2019-09-28 01:00 | NUR ---
REPORT RECEIVED FROM HEIDY. RE-ASSUMED CARE OF PT AT THIS TIME
--- NOTE | 2019-09-28 02:08 | NUR ---
PT GIVEN CRACKERS PER REQUEST
--- NOTE | 2019-09-28 02:14 | NUR ---
MEAL TRAY ORDERED
--- NOTE | 2019-09-28 04:25 | NUR ---
PT AWAKE AND WALKING AROUND. PT PROVIDED SNACKS PER REQUEST. SITTER REMAINS IN PLACE.
--- NOTE | 2019-09-28 06:56 | NUR ---
RECEIVED REPORT FROM AMINA. PT SLEEPING ON HOSPITAL BED CALMLY, NAD WITH EQUAL CHEST RISE/FALL, NO NEEDS AT THIS TIME, PT REMAINS IN SAFE ENVIRONMENT, SITTER IN VIEW.
--- NOTE | 2019-09-28 08:14 | NUR ---
REPORT GIVEN TO AMBROSIO
[2019-09-28] MEDS ORDERED: ARIPIPRAZOLE 10 MG TABLET ONE (08:26)
--- NOTE | 2019-09-28 08:30 | NUR ---
PT AWAKE IN ROOM, INTERMITTANT LAUGHING AND TALKING TO HIMSELF. PT COOPERATIVE WITH RN IN OBTAINING VS AND TAKING HIS MEDICATIONS. PT VERBALIZES HE HAS HAD THOUGHTS OF HITTING HIMSELF AND HEARING VOICES PT IS NOT SPECIFIC TO WHAT THE VOICES ARE TELLING HIM OR WHAT HE IS HEARING. BREAKFAST TRAY PROVIDED AND SET UP FOR PT. PT REQUESTS TO TAKE SHOWER TODAY. I AGREED AND SAID HE COULD TAKE ONE LATER THIS MORNING
[2019-09-28] MEDS: ARIPIPRAZOLE 10 MG TABLET PO SCH (08:33)
--- NOTE | 2019-09-28 09:30 | NUR ---
PT ATE 100% OF BREAKFAST. REMAINS COOPERATIVE, CONTINUES WITH SHORT PERIODS OF LAUGHING AND TALKING TO SELF. SITTER AT DOORWAY
--- NOTE | 2019-09-28 10:03 | NUR ---
LATE ENTRY 0800 SBAR RPT REC'D FROM TAD CHOI. PT SLEEPING WITH COVERS OVER HIS HEAD. VERIFIED ROOM SECURED WITH GARAGE DOORS DOWN, SITTER AT DOORWAY WITH PT IN VIEW.
--- NOTE | 2019-09-28 10:32 | NUR ---
PT AMBULATED TO SHOWER ROOM WITH SITTER. PT AGREED TO 15MIN SHOWER LIMIT.
--- NOTE | 2019-09-28 10:53 | NUR ---
PT COMPLETED SHOWER AND RTD TO ROOM W/O INCIDENT. SNACKS PROVIDED. PT INFORMED OF PLAN TO TRANSFER TO [facility] AT 1230.
--- NOTE | 2019-09-28 10:55 | NUR ---
THROUGHPUT: IGNACIO FROM [facility] ACCEPTED PT FOR 1230 TRANSFER, DR HOANG IS ACCEPTING MD.
--- NOTE | 2019-09-28 11:00 | NUR ---
REPORT RC'VD FROM AMBROSIO MISHRA. PT WALKING AROUND ROOM, CALM, COOPERATIVE, NO S/S OF DISTRESS.
--- NOTE | 2019-09-28 11:00 | NUR ---
SBAR RPT TO IGNACIO BYERS RN AT [facility]. PT TO TRANS AT 1230.
--- NOTE | 2019-09-28 11:19 | NUR ---
THROUGHPUT: [facility] TO TRANSPORT PT TO [facility] ~1230 TODAY, PCS FORM FAXED.
--- NOTE | 2019-09-28 11:50 | NUR ---
PT UNDERSTANDS PLAN FOR TRANSFER TO [facility]. LUNCH ORDERED. VSS.
[2019-09-28 11:51] VITALS: BP 116/80
--- NOTE | 2019-09-28 12:29 | NUR ---
LUNCH TRAY PROVIDED TO PT. AWAITING [facility] FOR TRANSFER TO [facility].
--- NOTE | 2019-09-28 12:35 | NUR ---
[facility] HERE TO TAKE PT TO [facility]. 1 BAG BELONGINGS SENT WITH PT. CHART GIVEN TO EMS.
== END 2019-09-28 12:45 ==
LOC: ED 06:31
DX: F32.9 Major depressive disorder, single episode, unspecified (principal); F17.200 Nicotine dependence, unspecified, uncomplicated
CPT/HCPCS: 36415; 80053; 80307; 85025; 99285; Q0163

== ENCOUNTER 2019-10-23 04:48 | Emergency (ER) | payer MEDICAID ==
--- NOTE | 2019-10-23 05:14 | NUR ---
AERIAL PHOTOGRAPH INTERPRETER: PT LEFT BEFORE BEING CALLED FOR TRIAGE
== END 2019-10-23 05:16 | disposition left against medical advice (07) ==
LOC: ED 05:10
DX: R41.0 Disorientation, unspecified (principal); Z53.21 Procedure and treatment not carried out due to patient leaving prior to being seen by health care provider

== ENCOUNTER 2019-11-05 03:02 | Emergency (ER) | payer MEDICAID ==
[~2019-11-05] VITALS: Ht 172.7 cm; Wt 66.7 kg
[2019-11-05 03:06] VITALS: BP 126/84
[2019-11-05 03:41] LABS: AMPHETAMINE SCREEN, URINE Positive (Negative); BARBITURATE SCREEN, URINE Negative (Negative); BENZODIAZEPINE SCREEN, URINE Negative (Negative); CANNABINOID SCREEN, URINE Negative (Negative); COCAINE SCREEN, URINE Negative (Negative); METHADONE SCREEN, URINE Negative (Negative); OPIATE SCREEN, URINE Negative (Negative)
--- NOTE | 2019-11-05 03:45 | NUR ---
PER RN ACLS, "PT HERE STATING THAT HE IS FEELING SUICIDAL "I WANNA SHOOT MYSELF" HAS NO ACCESS TO FIREARMS. STATES THAT HE IS SUPPOSED TO TAKE ABILIFY. DISCHARGED FROM [facility] YESTERDAY". WHEN ASKED AGAIN, PATIENT STATES "I WAS FEELING SUICIDAL", THEN ASKED IF HE CURRENTLY DOES, PATIENT STATES "A LITTLE BIT". PATIENT STATES "I WANT TO SHOOT MYSELF", NO ACCESS TO FIREARMS. PATIENT A&OX4, VSS IN TRIAGE. PATIENT IS POOR HISTORIAN, UNABLE TO TELL THIS NURSE ANY MEDICAL HX. PATIENT IN SECURED ROOM, IN GOWN WITH BLANKET, ALL BELONGINGS PLACED IN PATIENT BELONGINGS BAG AND PUT IN LOCKED STORAGE
[2019-11-05 04:04] LABS: MICROSCOPIC NOT IND
--- NOTE | 2019-11-05 04:04 | NUR ---
PATIENT RESTING ON GURNEY, RESPIRATIONS EVEN AND UNLABORED.
[2019-11-05 04:05] LABS: CULTURE INDICATED? NO
--- NOTE | 2019-11-05 04:30 | NUR ---
TELEPSYCH [id number] PLACED IN PATIENT ROOM PATIENT RESTING ON GURNEY, RESPIRATIONS EVEN AND UNLABORED
[2019-11-05 05:03] LABS: SALICYLATE LEVEL < 1.7 mg/dL (2.8-20.0)
--- NOTE | 2019-11-05 05:16 | NUR ---
PATIENT RESTING ON GURNEY, RESPIRATIONS EVEN AND UNLABORED.
--- NOTE | 2019-11-05 05:54 | NUR ---
PATIENT RESTING ON GURNEY, RESPIRATIONS EVEN AND UNLABORED.
--- NOTE | 2019-11-05 06:07 | NUR ---
REPORT GIVEN TO TELE PSYCH CONSULT
--- NOTE | 2019-11-05 06:54 | NUR ---
REPORT GIVEN TO TAD MONTGOMERY. PLAN OF CARE DISCUSSED. PATIENT TO BE DISCHARGED.
--- NOTE | 2019-11-05 07:08 | NUR ---
Report received from Marilyn MISHRA. Patient given discharge instructions and they have confirmed that they understand the instructions. Patient ambulatory with steady gait. Patient escorted off the campus by security.
== END 2019-11-05 07:10 | disposition home or self-care (01) ==
LOC: ED 04:45
DX: R45.851 Suicidal ideations (principal); Z72.9 Problem related to lifestyle, unspecified
CPT/HCPCS: 36415; 80307; 81003; 99283

== ENCOUNTER 2019-11-08 01:19 | Emergency (ER) | payer MEDICAID ==
[~2019-11-08] VITALS: Ht 172.7 cm; Wt 71.0 kg
[2019-11-08 01:24] VITALS: BP 113/76
--- NOTE | 2019-11-08 01:42 | NUR ---
"I'VE BEEN HEARING VOICES AND SEEING THINGS AND IT'S DRIVING ME CRAZY". STATES VOICES ARE TELLING HIM "I SHOULD KILL PEOPLE AND SHIT". REPORTS SI, NO SPECIFIC PLAN IN PLACE. PT REPORTS SEEING SOMEONE OUTPATIENT TODAY. HX OF SCHIZOPHRENIA/BIPOLAR All pt belongings taken and placed in 3 of 3 bags and placed in locker. Sitter in hallway. Roller doors not able to be secured, due to being in room 37.
== END 2019-11-08 01:52 | disposition home or self-care (01) ==
LOC: ED 01:39
DX: F99 Mental disorder, not otherwise specified (principal); F17.200 Nicotine dependence, unspecified, uncomplicated; Z72.9 Problem related to lifestyle, unspecified
CPT/HCPCS: 99284

== ENCOUNTER 2019-11-14 03:25 | Emergency (ER) | payer MEDICAID ==
[~2019-11-14] VITALS: Ht 172.7 cm; Wt 68.0 kg
[2019-11-14 03:44] VITALS: BP 123/64
--- NOTE | 2019-11-14 04:04 | NUR ---
PT RESTING IN BED WITH, PT A/O X4 WITH SITTER AT PT SIDE. PT ROOM SI SECURED.
[2019-11-14 04:26] LABS: AMPHETAMINE SCREEN, URINE Negative (Negative); BARBITURATE SCREEN, URINE Negative (Negative); BENZODIAZEPINE SCREEN, URINE Negative (Negative); CANNABINOID SCREEN, URINE Negative (Negative); COCAINE SCREEN, URINE Negative (Negative); METHADONE SCREEN, URINE Negative (Negative); OPIATE SCREEN, URINE Positive (Negative)
[2019-11-14 04:32] LABS: BASOPHILS # (AUTO) 0.07 x10^3/uL (0-0.1); BASOPHILS % (AUTO) 1 % (0-1); EOSINOPHILS # (AUTO) 0.24 x10^3/uL (0-0.4); EOSINOPHILS % (AUTO) 3 % (1-7); LYMPHOCYTES # (AUTO) 2.08 x10^3/uL (1-3.4); LYMPHOCYTES % (AUTO) 21 % (22-44); MD NO; MEAN CORPUSCULAR HEMOGLOBIN 28.8 pg (27.5-34.5); MEAN CORPUSCULAR HGB CONC 32.8 g/dL (33.2-36.2); MEAN CORPUSCULAR VOLUME 87.8 fL (81-97); MEAN PLATELET VOLUME 7.9 fL (7.4-10.4); MONOCYTES # (AUTO) 0.94 x10^3/uL (0.2-0.8); MONOCYTES % (AUTO) 10 % (2-9); NEUTROPHILS # (AUTO) 6.59 x10^3/uL (1.8-6.8); NEUTROPHILS % (AUTO) 66 % (42-75); PLATELET COUNT 319 x10^3/uL (130-400); RED BLOOD COUNT 4.97 x10^6/uL (4.38-5.82)
[2019-11-14 04:44] LABS: ALBUMIN 3.7 g/dL (3.4-5.0); ANION GAP 4 mmol/L (5-15); CALCIUM 8.7 mg/dL (8.5-10.1); CHLORIDE 106 mmol/L (98-107)
[2019-11-14 04:49] LABS: ALANINE AMINOTRANSFERASE 66 U/L (12-78); ALKALINE PHOSPHATASE 73 U/L (45-117); BILIRUBIN,TOTAL 0.7 mg/dL (0.2-1.0); CREATININE 0.96 mg/dL (0.7-1.3); SALICYLATE LEVEL < 1.7 mg/dL (2.8-20.0); TOTAL PROTEIN 7.5 g/dL (6.4-8.2)
--- NOTE | 2019-11-14 07:15 | NUR ---
REPORT RECIEVED FROM JOHANNA MISHRA. PT RESTING ON GURNEY AT THIS TIME, VISIBLE CHEST RISE AND FALL NOTED. NAD AT THIS TIME. MEAL TRAY ORDERED
--- NOTE | 2019-11-14 08:24 | NUR ---
PT WOKE TO EAT MEAL TRAY, 100% CONSUMED. QUICKLY LAYING BACK DOWN TO SLEEP. PT STATES "IM JUST REALLY TIRED"
--- NOTE | 2019-11-14 10:00 | NUR ---
PT CONTINUES TO SLEEP ON GURNEY, VISIBLE CHEST RISE AND FALL NOTED. AWAITING TELEPSYCH
--- NOTE | 2019-11-14 12:00 | NUR ---
PSYCH BUILDING EQUIPMENT INSPECTOR IN TO EVAL PT. PT TO DISHCARGE HOME.
--- NOTE | 2019-11-14 15:10 | NUR ---
PT DISCHARGED HOME. PT VERIFIED ALL BELONGINGS PRESENT ON DISCHARGE
== END 2019-11-14 13:44 | disposition home or self-care (01) ==
LOC: ED 05:13
DX: F32.1 Major depressive disorder, single episode, moderate (principal); F17.200 Nicotine dependence, unspecified, uncomplicated; Z72.9 Problem related to lifestyle, unspecified
CPT/HCPCS: 36415; 80053; 80307; 85025; 99282; 99283; 99284